=== PATIENT | female | born 1970 | race Caucasian/White ===

== ENCOUNTER 2021-07-17 19:22 | Emergency (ER) | payer MEDICAID ==
[2021-07-17 19:34] VITALS: BP 138/68
--- NOTE | 2021-07-17 19:41 | ED Physician Documentation ---
PD HPI UPPER EXT INJURY - Stated complaint Stated Complaint: LEFT ARM PX - Chief complaint Chief Complaint: Ext Problem - History obtained from History obtained from: Patient - History of Present Illness Location: Left, Elbow Type of injury: Other (She does a lot of reptitive lifting, pulling, supination/pronation at work, and these have been increasing the pain during use.). No: Fall, Twist Where injury occurred: Work Timing - onset: How many months ago (1) Timing - duration: Months (1) Timing - details: Gradual onset, Waxing and waning (more consistent the past several days and not improved with Ibuprofen.) Improved by: Rest Worsened by: Moving, Palpating (medial condyle tender.) Associated symptoms: Swelling (medial elbow at times), Other (no rash nor sores). 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 - Present Medications Home Medications: Ambulatory Orders Medication Instructions Recorded Confirmed HYDROcod/ACETAM 5/325 [Uledi 5/325] 1 ea PO Q6H PRN #10 tablet 07/17/21 Meloxicam [Mobic] 7.5 mg PO BID 10 Days #20 tablet 07/17/21 - Allergies Allergies/Adverse Reactions: Allergies Allergy/AdvReac Type Severity Reaction Status Date / Time codeine Allergy Unknown Verified 07/17/21 19:35 - Social History Does the pt smoke?: Yes Smoking Status: Current every day smoker Does the pt drink ETOH?: Yes Does the pt have substance abuse?: No - Immunizations Immunizations are current?: Yes - POLST Patient has POLST: No PD ED PE NORMAL - Vitals Vital signs reviewed: Yes - General General: Alert and oriented X 3, No acute distress, Well developed/nourished - Derm Derm: Normal color, Warm and dry - Extremities Extremities: Other (Medial condyle left elbow with local tenderness. No crepitance or deformity. Pain increased with pronation against resistance and ulnar deviation/flexion at wrist. ) - Neuro Neuro: Alert and oriented X 3, No motor deficit, No sensory deficit Results - Vitals Vitals: Vital Signs - 24 hr 07/17/21 19:29 Temperature 36.9 C Heart Rate 75 Respiratory 16 Rate Blood Pressure 138/68 H O2 Saturation 99 Oxygen O2 Source Room air PD MEDICAL DECISION MAKING - ED course Complexity details: considered differential (Very consistent with medial epicondylitis of the elbow. Will give NSAIDs and some pain medicine. We discussed forearm band. Light duty left arm at work 1 week.), d/w patient Departure - Departure Disposition: Home, Self Care Clinical Impression: Epicondylitis elbow, medial Qualifiers: Laterality: left Qualified Code(s): M77.02 - Medial epicondylitis, left elbow Condition: Stable Record reviewed to determine appropriate education?: Yes Instructions: Medial Epicondylitis Follow-Up: Kvng Hope MD [Provider Admit Priv/Credential] - Prescriptions: Meloxicam [Mobic] 7.5 mg PO BID 10 Days #20 tablet HYDROcod/ACETAM 5/325 [Uledi 5/325] 1 ea PO Q6H PRN #10 tablet PRN Reason: Pain Comments: This sounds like some inflammation of the tendon attachment at the inside of the elbow. The prominence where it attaches is called the condyle so the this is called epicondylitis. Cool name but really means just some inflammation of the tendon insertion. As such reduced motion and repetitive use of the forearm and wrist will help allow healing. The forearm strap that we discussed will be more useful than the elbow wrap that you currently have. Remember this is worn a couple of inches below the elbow to reduce the motion of the tendon. Regular anti-inflammatories. Try meloxicam twice daily for the next 7 to 10 days regularly whether hurting or not. To that add Tylenol every 4-6 hours if needed for pain. I gave a note for modified work duty for the next week with light use and lifting and no repetitive motion of that arm for the week. I would anticipate improvement over the next several days to week. If so then resume normal activity. If still bothering you, follow-up with orthopedics for other potential treatments such as local injection, physical therapy or other treatments. I did write a prescription for a few stronger pain medicines to knee in case you need at night or such. Use them minimally if needed. I sent your prescriptions to [facility] pharmacy in [place]. I am prescribing a short course of narcotic pain medication for you. These are potentially dangerous and addictive medications that should be used carefully. These medications may constipate you. Take an brhg-iqd-sppnots stool softener such as docusate twice daily with plenty of water while taking these medications. If you go 24 hours without a bowel movement, take chsu-vre-tslypki MiraLAX, per package instructions. Do not drink or drive while taking these medications. If you received narcotic or sedating medications while in the emergency department do not drive for 24 hours. Store this medication in a safe, secure place and out of reach of children. It is a violation of federal law to give or sell this medication to another person or to use in a manner other than prescribed. The ED will not refill narcotic prescriptions, including prescriptions lost or stolen. You can dispose of unwanted medications at the [facility] office or at several pharmacies such as [facility]. Forms: Activity restrictions Discharge Date/Time: 07/17/21 20:37
[2021-07-17] MEDS ORDERED: DEXAMETHASONE 10 MG/ML VIAL PO STA (20:04)
[2021-07-17] MEDS ORDERED: NAPROXEN 250 MG TABLET PO STA (20:04)
[2021-07-17] MEDS ORDERED: CHERRY SYRUP 10 ML UDC PO ONE (20:04)
[2021-07-17] MEDS ORDERED: ACETAMINOPHEN 325 MG TABLET PO STA (20:04)
== END 2021-07-17 20:37 | disposition home or self-care (01) ==
LOC: ED 19:22
DX: M77.02 Medial epicondylitis, left elbow (principal); F17.200 Nicotine dependence, unspecified, uncomplicated
CPT/HCPCS: 99282; A9270

== ENCOUNTER 2021-12-13 08:00 | Outpatient (CLI) | payer OTHER ==
[2021-12-13 22:02] LABS: BACTERIAL VAGINOSIS DNA NEGATIVE (NEGATIVE); CANDIDA GLABRATA DNA NEGATIVE (NEGATIVE); CANDIDA GROUP DNA NEGATIVE (NEGATIVE); CANDIDA KRUSEI DNA NEGATIVE (NEGATIVE); TRICHOMONAS VAGINALIS DNA NEGATIVE (NEGATIVE)
[2021-12-13 22:47] LABS: CHLAMYDIA TRACHOMATIS DNA NEGATIVE (NEGATIVE); NEISSERIA GONORRHOEAE DNA NEGATIVE (NEGATIVE)
== END 2021-12-13 23:59 | disposition home or self-care (01) ==
LOC: LAB.N 08:00
PROVIDERS: ATTEND Physician Assistant Medical
DX: R30.0 Dysuria (principal)
CPT/HCPCS: 81514; 87086; 87491; 87591; 87661

== ENCOUNTER 2023-05-08 15:53 | Outpatient (CLI) | payer OTHER ==
--- NOTE | 2023-05-08 16:32 | XRAY Report ---
PROCEDURE: Knee 3V BL INDICATIONS: BILATERAL KNEE PAIN TECHNIQUE: 3 views of the knee(s) were acquired. COMPARISON: None. FINDINGS: Bones: No fractures or dislocations. No suspicious bony lesions. Tricompartmental changes present bilaterally, mild and most notable in the medial compartment. Bilateral patellar osteophytes are pre sent. No erosions. Soft tissues: No knee joint effusion. No suspicious soft tissue calcifications or masses. IMPRESSION: Early degenerative joint space narrowing. Reviewed by: Olamide Banks MD on 05/08/2023 4:30 PM PST Approved by: Olamide Banks MD on 05/08/2023 4:30 PM [facility] Station ID: [id number]
== END 2023-05-08 15:54 | disposition home or self-care (01) ==
LOC: DI 15:53
PROVIDERS: ATTEND Internal Medicine
DX: M17.0 Bilateral primary osteoarthritis of knee (principal)

== ENCOUNTER 2023-06-29 14:30 | Outpatient (CLI) | payer OTHER ==
--- NOTE | 2023-06-29 16:41 | XRAY Report ---
PROCEDURE: Knee 1 View BILAT INDICATIONS: BILAT KNEE PAIN, BILAT PA TUNNEL ONLY TECHNIQUE: 1 views of the knee(s) were acquired. COMPARISON: Bilateral knee radiograph on May 10, 2023. FINDINGS: Evaluation is limited on a single view. Bones: No fractures or dislocations. Mild symmetric bilateral medial compartment joint space narrowi ng. No suspicious bony lesions. Soft tissues: No suspicious soft tissue calcifications or masses. IMPRESSION: Evaluation is limited on a single view. Mild symmetric bilateral medial compartment joint space narrowing. Reviewed by: Mk Romero MD on 06/29/2023 4:39 PM PDT Approved by: Mk Romero MD on 06/29/2023 4:39 PM PDT Station ID: [id number]
== END 2023-06-29 23:59 | disposition home or self-care (01) ==
LOC: DI.WOS 14:30
PROVIDERS: ATTEND Physician Assistant Surgical
DX: M25.862 Other specified joint disorders, left knee (principal); M25.861 Other specified joint disorders, right knee

== ENCOUNTER 2023-07-27 16:22 | Outpatient (CLI) | payer OTHER ==
--- NOTE | 2023-07-27 20:34 | XRAY Report ---
PROCEDURE: Ankle 3+V RT INDICATIONS: RIGHT FOOT AND ANKLE PAIN TECHNIQUE: 3 views of the ankle were acquired. COMPARISON: X-ray foot 07/27/2023 FINDINGS: Bones: No fractures or dislocations. Ankle mortise is normally aligned. No suspicious bony lesions . Calcaneal spur. Soft tissues: No tibiotalar joint effusion. Achilles tendon appears normal. IMPRESSION: No visualized acute fracture or dislocation. However, occult injury cannot be excluded. Recommend val rt interval imaging follow-up in 7-10 days as clinically indicated for additional evaluation. Reviewed by: Olamide Banks MD on 07/27/2023 8:33 PM PDT Approved by: Olamide Banks MD on 07/27/2023 8:33 PM PDT Station ID: [id number]
--- NOTE | 2023-07-28 14:34 | XRAY Report ---
PROCEDURE: Foot 3+V RT INDICATIONS: RIGHT FOOT AND ANKLE PAIN TECHNIQUE: 3 views of the foot were acquired. COMPARISON: X-ray ankle 07/27/2023 FINDINGS: Bones: No fractures or dislocations. No suspicious bony lesions. Soft tissues: No tibiotalar joint effusion. Achilles tendon appears normal. IMPRESSION: No visualized acute fracture or dislocation. However, occult injury cannot be excluded. Recommend val rt interval imaging follow-up in 7-10 days as clinically indicated for additional evaluation. Reviewed by: Olamide Banks MD on 07/28/2023 2:32 PM PDT Approved by: Olamide Banks MD on 07/28/2023 2:32 PM PDT Station ID: [id number]
== END 2023-07-27 16:23 | disposition home or self-care (01) ==
LOC: DI 16:22
PROVIDERS: ATTEND Registered Nurse
DX: M79.671 Pain in right foot (principal); M25.571 Pain in right ankle and joints of right foot